=== PATIENT | female | born 2000 | race Caucasian/White ===

== ENCOUNTER 2020-03-21 18:06 | Emergency (ER) | payer OTHER ==
--- NOTE | 2020-03-21 18:32 | ER Document Report ---
ED GI/ - General Chief Complaint: Urinary Problem Stated Complaint: ABDOMINAL PAIN,DIFFICULTY URINATING Time Seen by Provider: 03/21/20 18:21 Primary Care Provider: LEONEL ROGER DO [Primary Care Provider] - Follow up in 3-5 days Mode of Arrival: Ambulatory Information source: Patient Notes: 20-year-old female presents to ED for complaint of frequency and urgency and pain with urination. She states is a lot of pressure after she urinates like she still needs to urinate. She states this is been going since this morning. She states she has not had any burning nausea vomiting or fever. Her last menstrual period was 03/10/2020. She does have a history of anxiety and depression. She states she does not smoke drink or use any illicit drugs. Patient is alert oriented respirations regular nonlabored speaking in full sentences. Constitutional: Negative for fever. HENT: Negative for sore throat. Eyes: Negative for visual changes. Cardiovascular: Negative for chest pain. Respiratory: Negative for shortness of breath. Gastrointestinal: Negative for abdominal pain, vomiting or diarrhea. Genitourinary: frequency urgency and pressure with urination since morning Musculoskeletal: Negative for back pain. Skin: Negative for rash. Neurological: Negative for headaches, weakness or numbness. 10 point ROS negative except as marked above and in HPI. PHYSICAL EXAMINATION: GENERAL: Well-appearing, well-nourished and in no acute distress. HEAD: Atraumatic, normocephalic. EYES: Pupils equal round and reactive to light, extraocular movements intact, s clera anicteric, conjunctiva are normal. ENT: nares patent, oropharynx clear without exudates. Moist mucous membranes. NECK: Normal range of motion, supple without lymphadenopathy LUNGS: Breath sounds clear to auscultation bilaterally and equal. No wheezes rales or rhonchi. HEART: Regular rate and rhythm without murmurs ABDOMEN: Left lower abdomen/pelvic/bladder tenderness EXTREMITIES: Normal range of motion, no pitting or edema. No cyanosis. NEUROLOGICAL: No focal neurological deficits. Moves all extremities spontaneously and on command. PSYCH: Normal mood, normal affect. SKIN: Warm, Dry, normal turgor, no rashes or lesions noted. - HPI Patient complains to provider of: Other - Suprapubic/pelvic/lower abdomen pain Onset: This morning Timing/Duration: Intermittent - After urination Quality of pain: Pressure Severity at maximum: Moderate Severity in ED: Mild Pain Level: 2 Location: Suprapubic, Pelvis Vaginal bleeding (Compared to normal period): None LMP: 03/10/2020 Associated symptoms: Urinary frequency, Urinary urgency, Other - Pressure Exacerbated by: Other - Urination Relieved by: Denies Similar symptoms previously: Yes Recently seen / treated by doctor: No - Related Data Allergies/Adverse Reactions: shrimp Allergy (Verified 03/21/20 18:20) Swelling of Throat Past Medical History - General Information source: Patient Last Menstrual Period: 03/13/20 - Social History Smoking Status: Never Smoker Frequency of alcohol use: None Drug Abuse: None Family History: Reviewed & Not Pertinent Patient has suicidal ideation: No Patient has homicidal ideation: No - Past Medical History Cardiac Medical History: Reports: None Pulmonary Medical History: Reports: None EENT Medical History: Reports: None Neurological Medical History: Reports: None Endocrine Medical History: Reports: None Renal/ Medical History: Reports: None Malignancy Medical History: Reports: None GI Medical History: Reports: None Musculoskeletal Medical History: Reports None Skin Medical History: Reports None Psychiatric Medical History: Reports: Hx Anxiety, Hx Depression Traumatic Medical History: Reports: None Infectious Medical History: Reports: None Surgical Hx: Negative Past Surgical History: Reports: None - Immunizations Immunizations up to date: Yes Hx Diphtheria, Pertussis, Tetanus Vaccination: Yes Physical Exam - Vital signs Vitals: Temp Pulse Resp BP Pulse Ox 98.4 F 59 L 16 122/71 98 03/21/20 18:13 03/21/20 18:13 03/21/20 18:13 03/21/20 18:13 03/21/20 18:13 Course - Re-evaluation Re-evalutation: 03/21/20 21:31 She was treated with Keflex and Pyridium for her UTI. She was discharged home with prescriptions for both. Patient is alert oriented respirations regular nonlabored speaking in full sentences. - Vital Signs Vital signs: Temp Pulse Resp BP Pulse Ox 98.6 F 58 L 17 128/73 H 100 03/21/20 19:29 03/21/20 19:29 03/21/20 19:29 03/21/20 19:29 03/21/20 19:29 - Laboratory Laboratory results interpreted by me: 03/21/20 18:40 Urine Blood MODERATE H Urine Urobilinogen 2.0 H Ur Leukocyte Esterase MODERATE H Discharge - Discharge Clinical Impression: UTI (urinary tract infection) Qualifiers: Urinary tract infection type: acute cystitis Hematuria presence: with hematuria Qualified Code(s): N30.01 - Acute cystitis with hematuria Condition: Stable Disposition: HOME, SELF-CARE Additional Instructions: URINARY TRACT INFECTION: Your evaluation indicates that you have a urinary tract infection. This is due to germs growing in the bladder. This is a common problem. This infection usually responds quickly to antibiotics. Your antibiotic should be taken exactly as prescribed. Drink plenty of fluids -- three to four quarts a day. Occasionally, a bladder anesthetic will be prescribed to help stop the feeling of urgency until the antibiotic has a chance to clear the infection. This may cause your urine to be dark orange. Certain urine infections require a culture. If the doctor obtained a culture, the results will be back in two days. You should call to see if a change in treatment is needed. A repeat urinalysis after you finish treatment is often recommended. The physician will let you know if further testing is required. Call the doctor if you develop fever, chills, flank pain, inability to urinate, or blood in the urine. CEPHALEXIN: The antibiotic you've been prescribed is a member of the cephalosporin class. This type of antibiotic covers a wide variety of infections, including those of the skin, lungs, and urinary tract. It's useful for staph infections. This antibiotic is slightly similar to the penicillin family. In rare cases, a person who is allergic to penicillin will also be allergic to this medication. If you have had a severe allergic reaction to penicillin, and have not taken this antibiotic since that time, notify your doctor. Antibiotics which cover many germs ("broad spectrum" antibiotics) are more likely to cause diarrhea or "yeast" infections. Women prone to vaginal yeast problems may suffer an attack after taking this antibiotic. In infants, oral thrush (white spots "stuck" on the cheek) or yeast diaper rash may result. See your doctor if these problems occur. Call at once if you develop itching, hives, shortness of breath, or lightheadedness. URINARY ANESTHETIC AGENT: You have been given a medication (Pyridium) for urinary tract discomfort. This medicine numbs the lining of the bladder and urethra, resulting in less pain, burning, and urgency. You may take it as needed, according to instructions. When the symptoms resolve, you can stop this medication (be sure to continue any other medications the doctor has given you). This medicine turns the urine a dark orange. It may stain underwear. Occasionally, it can cause nausea. Return for evaluation if there are any unexpected effects, such as itching, hives, or shortness of breath. FOLLOW-UP CARE: If you have been referred to a physician for follow-up care, call the physicians office for an appointment as you were instructed or within the next two days. If you experience worsening or a significant change in your symptoms, notify the physician immediately or return to the Emergency Department at any time for re-evaluation. Prescriptions: Cephalexin Monohydrate [Keflex 500 mg Capsule] 500 mg PO Q6H 5 Days #20 capsule Phenazopyridine HCl [Pyridium] 100 mg PO TIDP PRN #14 tablet PRN Reason: Referrals: LEONEL ROGER DO [Primary Care Provider] - Follow up in 3-5 days
[2020-03-21 19:09] LABS: APPEARANCE,URINE SLIGHTLY-CLOUDY; BILIRUBIN,URINE NEGATIVE (NEGATIVE); COLOR,URINE YELLOW; GLUCOSE, URINE NEGATIVE (NEGATIVE); KETONES,URINE NEGATIVE (NEGATIVE); LEUKOCYTE ESTERASE,URINE MODERATE (NEGATIVE); NITRITE,URINE NEGATIVE (NEGATIVE); PROTEIN,URINE NEGATIVE (NEGATIVE); URINE SPECIFIC GRAVITY 1.024
[2020-03-21] MEDS ORDERED: CEPHALEXIN 500 MG CAPSULE PO ONE (19:25)
[2020-03-21] MEDS ORDERED: PHENAZOPYRIDINE HCL 100 MG TABLET PO ONE (19:30)
[2020-03-21 19:31] VITALS: BP 128/73
== END 2020-03-21 19:40 | disposition home or self-care (01) ==
LOC: ER 18:06
DX: N30.01 Acute cystitis with hematuria (principal)
CPT/HCPCS: 99283; 87086; 87088; 81001; 87186; J3490

== ENCOUNTER 2020-05-09 18:57 | Emergency (ER) | payer OTHER ==
[2020-05-09] MEDS ORDERED: NORMAL SALINE 1000 ML 1,000 ML IV ONE (19:35)
[2020-05-09] MEDS ORDERED: KETOROLAC TROMETHAMINE INJ/PF 30 MG/1 ML SDV IV ONE (19:35)
--- NOTE | 2020-05-09 19:39 | ER Document Report ---
ED Medical Screen (RME) - General Chief Complaint: Flu Symptoms Stated Complaint: SORE THROAT HEADACHE,BODY ACHES Time Seen by Provider: 05/09/20 19:31 Primary Care Provider: LEONEL ROGER DO [Primary Care Provider] - Follow up as needed Mode of Arrival: Ambulatory Information source: Patient Notes: Patient is a 20-year-old female coming in today chief complaint of very sore throat with odynophagia, fever, generalized body aches, headache, abdominal discomfort with nausea. No vomiting. She denies a cough. Normally healthy without any medical problems. Does not take any medications. General: non-Toxic appearing Cardiac: Tachycardic Pulmonary clear to auscultation bilaterally HEENT slightly enlarged tonsils 1+ injected bilaterally without exudates. No trismus. No drooling. No submandibular or sublingual swelling. No dysphonia dyspnea or dysphagia. Abdomen nontender nondistended I have greeted and performed a rapid initial assessment of this patient. A comprehensive ED assessment and evaluation of the patient, analysis of test results and completion of the medical decision making process will be conducted by additional ED providers. - Related Data Allergies/Adverse Reactions: shrimp Allergy (Verified 03/21/20 18:20) Swelling of Throat Past Medical History Psychiatric Medical History: Reports: Hx Anxiety, Hx Depression - Immunizations Immunizations up to date: Yes Hx Diphtheria, Pertussis, Tetanus Vaccination: Yes Physical Exam - Vital signs Vitals: Temp Pulse Resp BP Pulse Ox 102.1 F H 139 H 20 108/60 98 05/09/20 19:07 05/09/20 19:07 05/09/20 19:07 05/09/20 19:07 05/09/20 19:07 Course - Vital Signs Vital signs: Temp Pulse Resp BP Pulse Ox 102.1 F H 139 H 20 108/60 98 05/09/20 19:07 05/09/20 19:07 05/09/20 19:07 05/09/20 19:07 05/09/20 19:07 Doctor's Discharge - Discharge Referrals: LEONEL ROGER DO [Primary Care Provider] - Follow up as needed
[2020-05-09 20:28] LABS: A TYPE INFLUENZA AG NEGATIVE (NEGATIVE); B INFLUENZA AG NEGATIVE (NEGATIVE)
[2020-05-09 21:24] LABS: HEMATOCRIT 36.4 % (36.0-47.0); HEMOGLOBIN 12.3 g/dL (12.0-15.5); MEAN CORPUSCULAR HEMOGLOBIN 28.5 pg (27.0-33.4); MEAN CORPUSCULAR HGB CONC 33.8 g/dL (32.0-36.0); MEAN CORPUSCULAR VOLUME 84 fl (80-97); PLATELET COUNT 251 10^3/uL (150-450); RED BLOOD COUNT 4.32 10^6/uL (3.72-5.28); RED CELL DISTRIBUTION WIDTH 15.1 % (11.5-14.0); WHITE BLOOD COUNT 13.8 10^3/uL (4.0-10.5)
[2020-05-09 21:37] LABS: ABSOLUTE MONOCYTES # (MANUAL) 0.4 10^3/uL (0.1-1.4); BASOPHILS % (MANUAL) 0 % (0-2); EOSINOPHILS % (MANUAL) 0 % (0-6); LYMPHOCYTES % (MANUAL) 7 % (13-45); MONOCYTES % (MANUAL) 3 % (3-13); SEGMENTED NEUTROPHILS % (MAN) 90 % (42-78); TOTAL CELLS COUNTED 100
[2020-05-09] MEDS ORDERED: ACETAMINOPHEN 325 MG TABLET PO ONE (21:37)
--- NOTE | 2020-05-09 21:38 | ER Document Report ---
ED General - General Chief Complaint: Flu Symptoms Stated Complaint: SORE THROAT HEADACHE,BODY ACHES Time Seen by Provider: 05/09/20 19:31 Primary Care Provider: LEONEL ROGER DO [Primary Care Provider] - Follow up in 1 week Mode of Arrival: Ambulatory - [facility] Notes: 20-year-old female to the emergency department with complaints of sore throat, headache, body aches, shortness of breath, nausea, fevers that began today. She states that her headache was the worst while she was febrile. She states that she is feeling better now that she has had her fever reduced. She states that she does not have a anneliese cough. She denies any known Covid exposures. However, she has been to restaurants and in store shopping. She states she always wears a mask. She denies any other members of her family sick with any other illnesses. She is not gotten the flu shot this season. She denies any loss of taste or smell. She denies any ear pain, chest pain, abdominal pain. Admits to some loose stool this morning but no anneliese diarrhea. Denies any back pain. The patient was evaluated during the global COVID 19 pandemic, and that diagnosis was suspected/considered upon their initial presentation. Their evaluation, treatment, and testing was consistent with current guidelines for patients who present with complaints or symptoms that may be related to COVID- 19. - Related Data Allergies/Adverse Reactions: shrimp Allergy (Verified 03/21/20 18:20) Swelling of Throat Past Medical History - General Information source: Patient - Social History Smoking Status: Never Smoker Frequency of alcohol use: None Drug Abuse: None Family History: Reviewed & Not Pertinent Psychiatric Medical History: Reports: Hx Anxiety, Hx Depression - Immunizations Immunizations up to date: Yes Hx Diphtheria, Pertussis, Tetanus Vaccination: Yes Review of Systems - Review of Systems Constitutional: Chills, Fever, Malaise, Weakness EENT: Throat pain, Throat swelling. denies: Nose congestion Cardiovascular: Dizziness. denies: Chest pain, Palpitations, Heart racing, Orthopnea, Dyspnea, Syncope, Lightheaded Respiratory: Short of breath. denies: Cough Gastrointestinal: Nausea, Other - loose stool. denies: Abdominal pain, Vomiting Musculoskeletal: Muscle pain - body aches Skin: No symptoms reported Hematologic/Lymphatic: No symptoms reported Neurological/Psychological: No symptoms reported -: Yes All other systems reviewed and negative Physical Exam - Vital signs Vitals: Temp Pulse Resp BP Pulse Ox 102.1 F H 139 H 20 108/60 98 05/09/20 19:07 05/09/20 19:07 05/09/20 19:07 05/09/20 19:07 05/09/20 19:07 Interpretation: Tachycardic, Febrile - General General appearance: Appears well, Alert In distress: Mild Notes: Discomfort. Nontoxic in appearance - HEENT Head: Normocephalic, Atraumatic Eyes: Normal Pupils: PERRL Ears: Normal External canal: Normal. No: Blood in canal Tympanic membrane: Normal. No: Bulging, Hemotympanum, Injected, Perforation Sinus: Normal Nasal: Normal. No: Clear rhinorrhea Mouth/Lips: Normal. No: Angioedema Pharynx: Erythema - Bilateral tonsillar erythema without peritonsillar abscess. No uvular edema. No muffled voice. No drooling. Airway is grossly patent.. No: Uvular edema, Potential airway comprom. Neck: Normal, Supple. No: Lymphadenopathy - Respiratory Respiratory status: No respiratory distress Chest status: Nontender. No: Accessory muscle use Breath sounds: Normal. No: Rales, Rhonchi, Wheezing Chest palpation: Normal - Cardiovascular Rhythm: Regular Heart sounds: Normal auscultation Murmur: No - Abdominal Inspection: Normal Distension: No distension Bowel sounds: Normal Tenderness: Nontender. No: Tender, McBurney's point, Varela's sign, Guarding, Rebound Organomegaly: No organomegaly - Back Back: Normal, Nontender. No: CVA tenderness - Neurological Neuro grossly intact: Yes Cognition: Normal Orientation: AAOx4 Panacea Coma Scale Eye Opening: Spontaneous Marcel Coma Scale Verbal: Oriented Marcel Coma Scale Motor: Obeys Commands Panacea Coma Scale Total: 15 Speech: Normal Cranial nerves: Normal Cerebellar coordination: Normal Motor strength normal: LUE, RUE, LLE, RLE Additional motor exam normals: Equal potato picker Sensory: Normal - Psychological Associated symptoms: Normal affect, Normal mood - Skin Skin Temperature: Warm Skin Moisture: Dry Skin Color: Normal Course - Re-evaluation Re-evalutation: 05/09/20 23:05 Impression: Flulike syndrome, body aches, sore throat, fever, headache. Influenza swabs are negative today as well as strep and mono. She has a mild leukocytosis. She has a clear chest x-ray. She is feeling a lot better now that her fever has been controlled. She has no nuchal rigidity or neck pain. Unfortunately cannot rule out Covid in this young lady. We have swabbed her for it. We will put her on quarantine at home until we have some more information about the COVID-19 swab. I have encouraged her to take Tylenol and Motrin. We will also send home with Zofran for any nausea. Encouraged her to rest and self isolate. Also encouraged the patient to return immediately if any worsening symptoms such as shortness of breath, passing out, chest pain. Vital signs have improved. She is no longer febrile. Now 99.1. Also her heart rate had improved down to 122 after Toradol. We will recheck vital signs prior to discharge. She agrees with the plan. Patient was provided with discharge information including: As a person under investigation for COVID-19, [facility], division of public health advises you to adhere to the following guidance until your test results are reported to you. If your test result is positive, you will receive additional information from your provider and your local health department at that time. Remain at home until you are cleared by the healthcare provider public health authorities. Keep a log of visitors to your home and notify any visitors to your home of your isolation status. If you plan to move to a new address or leave the country, notify the local health department and your County. Call your doctor or seek care if you have an urgent medical need. Before seeking medical care, call ahead to get instructions from the provider before arriving at the medical office, clinic, or hospital. Notify them that you are being tested for the virus that causes COVID-19 so that arrangements can be made, as necessary, to prevent transmission to others in the healthcare setting. Next, notify the local health department and your County. If a medical emergency arises and you need to call 911, informed the first responders that you are being tested for the virus that causes COVID-19. Next, notified the local health department and your County. 05/09/20 23:34 repeat vital signs significantly better -- temp is 98.3 and pulse is 94. We will discharge the patient home. - Vital Signs Vital signs: Temp Pulse Resp BP Pulse Ox 99.1 F 139 H 20 108/60 98 05/09/20 21:28 05/09/20 19:07 05/09/20 19:07 05/09/20 19:07 05/09/20 19:07 - Laboratory Result Diagrams: 05/09/20 21:00 05/09/20 21:00 Laboratory results interpreted by me: 05/09/20 05/09/20 05/09/20 21:00 21:00 22:00 WBC 13.8 H RDW 15.1 H Seg Neuts % (Manual) 90 H Lymphocytes % (Manual) 7 L Abs Neuts (Manual) 12.4 H Sodium 134.4 L Carbon Dioxide 21 L Glucose 113 H Urine Protein 30 H Urine Ketones 80 H Urine Blood SMALL H Urine Urobilinogen 2.0 H - Diagnostic Test Radiology reviewed: Image reviewed, Reports reviewed Discharge - Discharge Clinical Impression: Viral upper respiratory illness, Generalized body aches, Sore throat, Suspected COVID-19 virus infection Fever Qualifiers: Fever type: unspecified Qualified Code(s): R50.9 - Fever, unspecified Headache Qualifiers: Headache type: unspecified Headache chronicity pattern: acute headache Intractability: not intractable Qualified Code(s): R51.9 - Headache, unspecified Condition: Stable Disposition: HOME, SELF-CARE Instructions: COVID-19 Guidance for Persons Under Investigation, Viral Syndrome ([facility]) Additional Instructions: Today your evaluated for your fever, body aches, sore throat, headache, nausea. You were found to be negative for influenza swabs, mono screen, and a rapid strep. You had a normal urinalysis without infection. Mild increase in your white blood count. We are still pending your Covid test. It will result in the next 3 to 5 days. Until then you must quarantine. Please take Tylenol Motrin for body aches and fevers. Drink fluids. He will be prescribed Zofran for any nausea. [place] diet as tolerated. Rest at home. Return immediately if any worsening symptoms such as shortness of breath, chest pain, passing out, intractable vomiting. As a person under investigation for COVID-19, [facility], division of public health advises you to adhere to the following guidance until your test results are reported to you. If your test result is positive, you will receive additional information from your provider and your local health department at that time. Remain at home until you are cleared by the healthcare provider public health authorities. Keep a log of visitors to your home and notify any visitors to your home of your isolation status. If you plan to move to a new address or leave the country, notify the local health department and your County. Call your doctor or seek care if you have an urgent medical need. Before seeking medical care, call ahead to get instructions from the provider before arriving at the medical office, clinic, or hospital. Notify them that you are being tested for the virus that causes COVID-19 so that arrangements can be made, as necessary, to prevent transmission to others in the healthcare setting. Next, notify the local health department and your County. If a medical emergency arises and you need to call 911, informed the first responders that you are being tested for the virus that causes COVID-19. Next, notified the local health department and your County. Prescriptions: Ondansetron [Zofran Odt 4 mg Tablet] 1 - 2 tab PO Q4H PRN #15 tab.rapdis PRN Reason: For Nausea/Vomiting Forms: Return to Work Referrals: LEONEL ROGER DO [Primary Care Provider] - Follow up in 1 week
[2020-05-09 21:40] LABS: ALKALINE PHOSPHATASE 77 U/L (38-126); ANION GAP 10 (5-19); ANISOCYTOSIS SLIGHT; ASPARTATE AMINO TRANSFERASE 21 U/L (14-36); BILIRUBIN,DIRECT 0.1 mg/dL (0.0-0.4); BILIRUBIN,TOTAL 0.9 mg/dL (0.2-1.3); BLOOD UREA NITROGEN 10 mg/dL (7-20); CALCIUM 8.8 mg/dL (8.4-10.2); CARBON DIOXIDE 21 mmol/L (22-30); CHLORIDE 103 mmol/L (98-107); GLUCOSE 113 mg/dL (75-110); OVALOCYTES SLIGHT; PLATELET COMMENT ADEQUATE; POIKILOCYTOSIS SLIGHT; POTASSIUM 3.7 mmol/L (3.6-5.0); TEAR DROP CELLS SLIGHT; TOTAL PROTEIN 6.7 g/dL (6.3-8.2); TOXIC GRANULATION 1+
--- NOTE | 2020-05-09 22:26 | RADIOLOGY REPORT (SQ) ---
CHEST X-RAY 1 VIEW on 05/09/2020 at 9:48 PM CLINICAL INDICATION: Fever, body aches COMPARISON: None FINDINGS: The lungs are clear. Cardiac, hilar and mediastinal contours are within normal limits. Pulmonary vascularity is within normal limits. No bony abnormality is noted. IMPRESSION: No active disease.
[2020-05-09 22:38] LABS: APPEARANCE,URINE CLOUDY; BILIRUBIN,URINE NEGATIVE (NEGATIVE); COLOR,URINE YELLOW; GLUCOSE, URINE NEGATIVE (NEGATIVE); KETONES,URINE 80 mg/dL (NEGATIVE); LEUKOCYTE ESTERASE,URINE NEGATIVE (NEGATIVE); NITRITE,URINE NEGATIVE (NEGATIVE); PROTEIN,URINE 30 mg/dL (NEGATIVE); URINE SPECIFIC GRAVITY 1.031
[2020-05-09 23:56] VITALS: BP 106/54
== END 2020-05-10 00:03 | disposition home or self-care (01) ==
LOC: ER 18:57
DX: J06.9 Acute upper respiratory infection, unspecified (principal); R50.9 Fever, unspecified; J02.9 Acute pharyngitis, unspecified; M79.10 Myalgia, unspecified site; R51.9 Headache, unspecified; R11.0 Nausea; R19.7 Diarrhea, unspecified; R00.0 Tachycardia, unspecified; Z20.828 Contact with and (suspected) exposure to other viral communicable diseases; F41.9 Anxiety disorder, unspecified; F32.9 Major depressive disorder, single episode, unspecified
CPT/HCPCS: 99284; 96361; 96374; 36415; 87070; 87880; 83605; 84703; 85025; 87635; 87077; 86308; 80053; 81001; 87804; 71045; J1885; J7030; C9803